=== PATIENT | male | born 1960 | race African-American/Black ===

== ENCOUNTER 2017-02-19 01:18 | Emergency (ER) | payer MEDICAID, OTHER ==
[~2017-02-19] VITALS: Ht 193 cm; Wt 140.0 kg
[2017-02-19 01:45] VITALS: BP 164/98; PULSE 82; RESP 20; TEMP 98.7; O2SAT 98
[2017-02-19] MEDS ORDERED: TRAM50TA PO (02:01)
[2017-02-19] MEDS ORDERED: CELE100C PO (02:01)
--- NOTE | 2017-02-19 02:38 | PD ---
HPI Chief Complaint: Back/ Neck Pain or Injury Time Seen by Provider: 02:17 Travel History International Travel<30 days: No Contact w/Intl Traveler<30days: No Traveled to known affect area: No History of Present Illness HPI The patient is a 57 year old male who presents to the [facility] emergency department with a history of chronic low back pain with a reported exacerbation that began on Saturday. The patient reports that he began his vacation to [place] on Saturday. He reports that he arrived by plane. He reports that he normally takes tramadol, Celebrex, and Flexeril for his pain, however this has not been leaving his pain since arriving in [place]. He reports that he's been having increasing problems with his back and has been to an orthopedic surgeon who 6 weeks ago did an epidural steroid injection. He reports that this did not help. He had a follow-up appointment on Saturday and was told that he may end up requiring surgery for treatment. He reports that he had an MRI in November 2016. He reports that he was diagnosed with degenerative disc disease and spinal stenosis. He denies any recent falls or new back injury. He denies any loss of bowel or bladder control. He denies having any fevers, recent weight loss, or night sweats. He denies using any IV drugs. The patient denies having any radiation of the pain down into his legs. He denies having any numbness or tingling in his legs. He denies having any weakness of his extremities. A review of systems, the patient denies any recent cough, congestion, neck pain, chest pain, shortness of breath, abdominal pain, vomiting , diarrhea, urinary symptoms, or other neurologic symptoms. [facility] [place] Past Medical History Narrative Medical The patient's past medical history is significant for hypertension, GERD, depression, spinal stenosis and chronic back pain, rheumatoid arthritis. Past Surgical History Narrative Surgical The patient's past surgical history is significant for an L4-L5 [id number] years ago, bilateral knee replacement, left hip knee replacement, b/l rotator cuffs, carpal tunnel release b/l. Social History Alcohol Use: Yes (socially.) Tobacco Use: No (4 years ago quit.) Substance Use: Yes (THC, cocaine occasionally) Allergies-Medications (Allergen,Severity, Reaction): Coded Allergies: Sulfa (Verified Allergy, Severe, Anaphylaxis, 02/19/17) Reported Meds & Prescriptions Reported Meds & Active Scripts Active Reported Tramadol (Tramadol HCl) 50 Mg Tab 50 Mg PO DAILY PRN Celebrex (Celecoxib) 100 Mg Cap 100 Mg PO BID Review of Systems Except as stated in HPI: all other systems reviewed are Neg General / Constitutional: No: Fever Eyes: No: Visual changes HENT: No: Headaches Cardiovascular: No: Chest Pain or Discomfort Respiratory: No: Shortness of Breath Gastrointestinal: No: Abdominal Pain Genitourinary: No: Dysuria Musculoskeletal: Positive: Myalgias, Arthralgias, No: Pain Skin: No Rash Neurologic: No: Weakness Psychiatric: No: Depression Endocrine: No: Polydipsia Hematologic/Lymphatic: No: Easy Bruising Physical Exam Narrative General: The patient is a well-developed well-nourished male, uncomfortable appearing on arrival reporting increased pain with movement. Head and Neck exam: Head is normocephalic atraumatic. Eyes: EOMI, pupils are equal round and reactive to light. Nose: Midline septum with pink mucous membranes Mouth: Dentition unremarkable. Moist mucus membranes. Posterior oropharynx is not erythematous. No tonsillar hypertrophy. Uvula midline. Airway patent. Neck: No palpable lymphadenopathy. No nuchal rigidity. No thyromegaly. Cardiovascular: Regular rate and rhythm without murmurs, gallops, or rubs. Lungs: Clear to auscultation bilaterally. No wheezes, rhonchi, or rales. Abdomen: Soft, without tenderness to palpation in all 4 quadrants of the abdomen. No guarding, rebound, or rigidity. Normal bowel sounds are audible. Extremities: No clubbing, cyanosis, or edema. 2+ pulses in all 4 extremities. The patient has a positive straight leg raise on the left. Back: No spinous process tenderness to palpation. No costovertebral angle tenderness to palpation. The patient has no erythema or ecchymosis. The patient has tenderness reported along the lower back over the sacrum. There is no point tenderness on palpation however. There is no crepitus or step-off. Neurologic Exam: Cranial nerves 2-12 were intact on exam. Strength is 5/5 in all 4 extremities. No sensory deficits noted. Skin Exam: No rash noted. Intact skin that is warm and dry. Data Data Last Documented VS Vital Signs Date Time Temp Pulse Resp B/P Pulse Ox O2 Delivery O2 Flow Rate FiO2 02/19/17 01:45 98.7 82 20 164/[address] Lumb Spine W/O Contrast (02/19/17 02:32) Dexamethasone Inj (Decadron Inj) (02/19/17 02:45) Orphenadrine Inj (Norflex Inj) (02/19/17 02:45) MDM Medical Decision Making Medical Screen Exam Complete: Yes Emergency Medical Condition: Yes Medical Record Reviewed: Yes Interpretation(s) Last Impressions Lumbar Spine CT 02/19/17 0232 Signed Impressions: Service Date/Time: Sunday, February 19, 2017 03:17 - CONCLUSION: Normal examination with previous surgery at L4 and L5. No acute fractures identified. Payam Nevarez MD Differential Diagnosis SI joint dysfunction, versus muscle spasm, versus exacerbation of chronic pain Narrative Course During the course of the patients emergency department visit, the patients history, examination, and differential diagnosis were reviewed with the patient. The patient had a CT scan of the lumbar spine ordered. The patient was given Decadron 10 mg IM 1, Norflex 60 mg IM 1. Radiology studies were reviewed and remarkable for a CT scan of the lumbar spine that showed no acute abnormality. The patient was instructed to discontinue the tramadol and Flexeril. The patient will be discharged home with a prescription for Lortab and Skelaxin. The patient was instructed to continue his Celebrex. The patient was instructed to follow-up with his orthopedic surgeon as soon as he returns back home for continued evaluation and treatment. The patient is resting comfortably and feels better, is alert and in no distress. The patients results and examination findings were discussed with the patient. The repeat examination is unremarkable and benign. The history, exam, diagnostic testing, and current condition do not suggest any significant pathology to warrant further testing, continued ED treatment, admission, or surgical evaluation at this point. The vital signs have been stable. The patient does not have uncontrollable pain, intractable vomiting, or other significant symptoms. The patient's condition is stable and appropriate for discharge. The patient will pursue further outpatient evaluation with a primary care physician or other designated or consulting physician as indicated in the discharge instructions. The patient expressed understanding and was agreeable with this plan. Diagnosis Primary Impression: Acute exacerbation of chronic low back pain Referrals: Orthopedist 1 week Patient Instructions: Back Pain (ED), General Instructions Med/Other Pt SpecificInfo: Prescription(s) given, Med Stopped (tramadol and Flexeril discontinued) Scripts Hydrocodone-Acetaminophen (Lortab)7.5-325 Mg Tab1 Tab PO Q6H PRN (PAIN) #12 TAB Ref 0 Prov:Bharti Navarrete MD 02/19/17 Metaxalone (Skelaxin)800 Mg Syg658 Mg PO TID PRN (SPASM) #15 TAB Ref 0 Prov:Bharti Navarrete MD 02/19/17 Disposition: 01 DISCHARGE HOME Condition: Stable Bharti Navarrete MD Feb 19, 2017 02:38
[2017-02-19] MEDS ORDERED: DEXAMETHASONE SOD PHOS 20 MG/5 ML VIAL IM ONE (02:45)
[2017-02-19] MEDS ORDERED: ORPHENADRINE INJ 60 MG/2 ML AMP IM ONE (02:45)
--- NOTE | 2017-02-19 03:45 | RADRPT ---
EXAM DATE/TIME: 02/19/2017 03:17 [facility] COMPARISON: No previous studies available for comparison. INDICATIONS : Low back pain. RADIATION DOSE: 35.86 CTDIvol (mGy) MEDICAL HISTORY : None SURGICAL HISTORY : Hip replacement. ENCOUNTER: Initial ACUITY: 1 day PAIN SCALE: 10/10 LOCATION: Bilateral low back TECHNIQUE: Volumetric scanning of the lumbar spine was performed. Multiplanar reconstructions in the sagittal, coronal and oblique axial planes were performed. Using automated exposure control and adjustment of the mA and/or kV according to patient size, radiation dose was kept as low as reasonably achievable t o obtain optimal diagnostic quality images. FINDINGS: VERTEBRAE: Normal vertebral body height. Some sclerosis along the inferior endplate of both L2 and L4. Mild vacu um phenomena at L4-5. L4 and L5 spinous processes have been removed. L5 laminectomy. ALIGNMENT: No evidence of subluxation. T12-L1: The thecal sac has a normal diameter. No evidence of disc bulge or protrusion. The neural foramina are patent bilaterally. L1-L2: The thecal sac has a normal diameter. No evidence of disc bulge or protrusion. The neural foramina are patent bilaterally. L2-L3: The thecal sac has a normal diameter. No evidence of disc bulge or protrusion. The neural foramina are patent bilaterally. L3-L4: The thecal sac has a normal diameter. No evidence of disc bulge or protrusion. The neural foramina are patent bilaterally. L4-L5: The thecal sac has a normal diameter. No evidence of disc bulge or protrusion. The neural foramina are patent bilaterally. L5-S1: The thecal sac has a normal diameter. No evidence of disc bulge or protrusion. The neural foramina are patent bilaterally. CONCLUSION: Normal examination with previous surgery at L4 and L5. No acute fractures identified. Payam Nevarez MD on February 19, 2017 at 3:42 Board Certified Radiologist. This report was verified electronically.
[2017-02-19] MEDS ORDERED: META800T81 PO (04:49)
[2017-02-19] MEDS ORDERED: HYDR-3534 PO (04:49)
== END 2017-02-19 05:24 | disposition home or self-care (01) ==
LOC: NEPC 01:18
DX: M54.5 Low back pain (principal); G89.29 Other chronic pain
CPT/HCPCS: 72131; 96372; 99283; J1100; J2360